=== PATIENT | female | born 1990 | race Caucasian/White ===

== ENCOUNTER 2016-12-06 23:24 | Emergency (ER) | payer OTHER ==
[~2016-12-06] VITALS: Ht 162.6 cm; Wt 119.9 kg
[~2016-12-06 23:24] MED LIST: IMT100 PO; MEDR150I IM
[2016-12-06 23:30] VITALS: TEMP 36.8; Ht 162.6 cm; Wt 119.9 kg
[2016-12-07] MEDS ORDERED: PHT15 PO
[2016-12-07] MEDS ORDERED: MEDR1INJ5 INJ
[2016-12-07] MEDS ORDERED: CYCL10TA7 PO
[2016-12-07] MEDS ORDERED: LORA-741 PO (00:01)
[2016-12-07] MEDS ORDERED: CHOL1000 PO (00:01)
[2016-12-07] MEDS ORDERED: FLUT0.15 NAE (00:01)
[2016-12-07] MEDS ORDERED: CEPHALEXIN 500MG HOME PACK 1 EA BTL PO STA (00:07)
[2016-12-07] MEDS ORDERED: SEPTRA DS HOME PACK 1 EA VIAL PO STA (00:07)
[2016-12-07] MEDS ORDERED: SULFAMETHOXAZOLE/TRIMETHOPRIM DS 800/160MG TAB PO STA (00:07)
[2016-12-07] MEDS ORDERED: CEPHALEXIN MONOHYDRATE 250 MG CAP PO STA (00:07)
--- NOTE | 2016-12-07 00:11 | EMERGENCY ROOM VISIT NOTE ---
History First contact with patient: 23:30 Chief Complaint: OTHER COMPLAINT Stated Complaint: OTHER- REQUESTING TO SEE PARTH History of Present Illness The patient is a 26 year old female who presents to the Emergency Room via private vehicle with complaints of "abscess on abdomen". The patient states that she has had abscesses before on her skin, and this past Wednesday she noticed a red ring in a dark central region that appear to be blood filled in the left anterior inferior abdomen. This was in the region of the waistline. She notes that Wednesday evening she did drain this region. She notes no pain. She does believe that the skin is tender to touch. She states that these usually will go away on their own however this one has lingered. She denies any fevers, chills, nausea, vomiting, recent tick bites or bites to the area or any other concerns. Review of Systems A complete 10-point Review of Systems was discussed with the patient, with pertinent positives and negatives listed in the History of Present Illness. All remaining Review of Systems questions can be considered negative unless otherwise specified. Past Medical/Surgical History Skin problems, wisdom teeth extraction Family History Diabetes mellitus Gallbladder disease Heart disease Hypertension Kidney disease Social History Smoking Status: Current Every Day Smoker Alcohol Use: occasionally Marital Status: single Housing Status: lives with family Occupation Status: employed Current/Historical Medications Scheduled Cephalexin Monohydrate (Keflex), 500 MG PO QID Cholecalciferol (Vitamin D3), 1 TAB PO DAILY Fluticasone Propionate (Nasal) (Flonase Allergy Relief), 2 SPRAYS GLORIA DAILY Medroxyprogesterone Acetate (C (Medroxyprogesterone Aceta), 150 MG INJ every 10 week Phentermine HCl (Phentermine HCl), 15 MG PO DAILY Sulfa/Trimethoprim (Bactrim Ds 800MG/160MG), 1 TAB PO BID Scheduled PRN Cyclobenzaprine HCl (Cyclobenzaprine HCl), 10 MG PO HS PRN for muscle spasm or migraine Lorazepam (Ativan), 0.5 MG PO TID PRN for Anxiety Sumatriptan Succinate (Imitrex), 100 MG PO UD PRN for Migraine Allergies Coded Allergies: No Known Allergies (Unverified , 12/06/16) Physical Exam Vital Signs Date Time Temp Pulse Resp B/P Pulse Ox O2 Delivery O2 Flow Rate FiO2 12/07/16 02:06 75 16 125/73 98 Room Air 12/07/16 01:18 80 18 117/72 99 Room Air 12/06/16 23:30 36.8 93 18 147/95 100 Room Air Physical Exam VITAL SIGNS - Vital signs and nursing notes were reviewed. Patient is afebrile , hypertensive at 147/95, non-tachycardic and is saturating well on room air 100 %. GENERAL -26-year-old female appearing her stated age who is in no acute distress. Communicates well with provider and answers questions appropriately. SKIN - overlying the left anterior inferior abdomen in the area of the waistline there is a 2 cm x 1.5 cm darkened region that is tender to palpation and indurated. Surrounding this there is an area of erythema consistent with cellulitis measuring approximately 12 cm x 8 cm. This region does not extend below the waistline. From the darkened center region there is a scant amount of serous blood fluid. Medical Decision & Procedures ER Provider Diagnostic Interpretation: Ultrasound as read by stat read: Ultrasound soft tissue: Superficial hypoechoic lesion with increased vascularity measuring 1.9x0.4x2.0cm. Consider infectious process such as abscess in the right clinical setting. Hematoma also had a similar appearance alternatively. Medications Administered Medications (Trade) Dose Ordered Sig/Freedom Route Start Time Stop Time Status Last Admin Dose Admin Trimethoprim/ Sulfamethoxazole (Sulfameth/ Trimeth Ds 800/ 160MG Home Pack) 1 homepack UD STAT PO 12/07/16 00:07 12/07/16 00:10 DC 12/07/16 00:19 1 HOMEPACK Trimethoprim/ Sulfamethoxazole (Septra Ds 800/ 160MG Tab) 1 tab NOW STAT PO 12/07/16 00:07 12/07/16 00:10 DC 12/07/16 00:19 1 TAB Cephalexin Monohydrate (Keflex 500MG Home Pack) 1 homepack NOW STAT PO 12/07/16 00:07 12/07/16 00:10 DC 12/07/16 00:20 1 HOMEPACK Cephalexin Monohydrate (Keflex Cap) 500 mg NOW STAT PO 12/07/16 00:07 12/07/16 00:10 DC 12/07/16 00:19 500 MG Medical Decision Patient was seen and evaluated as above. She appears to have a indurated region centrally located with surrounding area of erythema which is likely cellulitis. The area already appears to be draining slightly, and is nonfluctuant to palpation. I did elect to obtain an ultrasound of this region as she notes that it was draining earlier. I was obtained. This does reveal a collection such as an abscess, however clinically to appreciate the region I do not feel that any drainage at this time will be of benefit. I do not believe that there is infectious material within this region at this time. I believe it is likely blood filled, as the patient notes that when she drained earlier it drained a large amount of blood and not pus. I did provide her with Keflex and Bactrim, as well as home packs with remainder sent to the pharmacy. I suspect she is experiencing cellulitis, and I believe the central region will resolve. I did offer her incision and drainage at this time, but through decision making and shared decision making it was decided to defer at this time. She is to follow-up with her family doctor in 48 hours for recheck or return here for recheck or sooner if worsening. She was educated upon worrisome symptoms which to return, had questions prior to discharge and was discharged home in good condition. Evaluation treatment this patient following differential diagnoses were entertained: Cellulitis, abscess, hematoma, among others. Impression Primary Impression: Abscess Additional Impression: Cellulitis Departure Information Dispostion Home / Self-Care Condition GOOD Prescriptions Sulfa/Trimethoprim (Bactrim Ds 800MG/160MG) Tab 1 TAB PO BID for 9 Days, #18 TAB Prov: Parth Tomlin PA-C 12/07/16 Cephalexin Monohydrate (Keflex) 500 Mg Cap 500 MG PO QID for 9 Days, #36 CAP Prov: Parth Tomlin PA-C 12/07/16 Referrals Lyndon Ellsworth III, M.D. (PCP) Patient Instructions My [facility] Additional Instructions You were seen in the emergency department for an infection on your left anterior abdomen. As we discussed, the ultrasound does show a small fluid collection, but at this time I believe that this is likely blood filled, and is already draining. For the surrounding area of cellulitis, it is recommended to take Keflex and Bactrim. Keflex is 500 mg every 6 hours which is 4 times daily. This is for a total of 10 days. You been provided the first dose here, sent home with a home pack with the remainder sent to the pharmacy. Bactrim is taken every 12 hours, which is 2 times daily for a total of 10 days. You provided the first dose here, sent home with a home pack with the remainder sent to the pharmacy. You may clean the area with soap and water. I have outlined the area of redness, if it extends much beyond this please return. Please call your family doctor to schedule an appointment for recheck in the next 48 hours. If you are not able to do so, please return to the emergency department in 48 hours for recheck. Please return to the emergency department for any worsening of your symptoms or if you develop any fevers, chills or any new/concerning symptoms. Thank you for your time. Problem Qualifiers
[2016-12-07 02:06] VITALS: BP 125/73; PULSE 75; O2SAT 98
[2016-12-07] MEDS ORDERED: CEPH500C PO (02:07)
[2016-12-07] MEDS ORDERED: SULF800T23 PO (02:07)
--- NOTE | 2016-12-07 06:43 | DIAGNOSTIC IMAGING REPORT ---
LEFT EXTREMITY NONVASCULAR LIMITED CLINICAL HISTORY: Left anterior abdomen cellulitis with ?abscess/fluid collection COMPARISON STUDY: No previous studies for comparison. FINDINGS: Targeted sonography of the left anterior abdominal wall demonstrated a 1.9 x 0.4 x 2 cm subcutaneous hypoechoic focus with increased vascularity of the adjacent soft tissues. IMPRESSION: 1.9 x 0.4 x 2 cm subcutaneous hypoechoic focus of the left anterior abdominal wall. This could reflect a phlegmon or developing abscess. A hematoma could appear similar. Electronically signed by: Adolph Hernandez M.D. 12/07/2016 6:41 AM Dictated Date/Time: 12/07/2016 6:39 AM
== END 2016-12-07 02:13 | disposition home or self-care (01) ==
LOC: C.EDB 23:25 → C.EDA 12-07 02:13
DX: L02.211 Cutaneous abscess of abdominal wall (principal); F17.200 Nicotine dependence, unspecified, uncomplicated; Z79.899 Other long term (current) drug therapy; Z83.3 Family history of diabetes mellitus; Z83.79 Family history of other diseases of the digestive system; Z82.49 Family history of ischemic heart disease and other diseases of the circulatory system; Z84.1 Family history of disorders of kidney and ureter

== ENCOUNTER → 2016-12-21 | Outpatient (CLI) | payer OTHER ==
[~2016-12-21] MED LIST changes: +CHOL1000 PO; +CYCL10TA7 PO; +FLUT0.15 NAE; +LORA-741 PO; -MEDR150I IM; +MEDR1INJ5 INJ; +PHT15 PO
== END | disposition home or self-care (01) ==
LOC: C.MAMM 13:38
PROVIDERS: ATTEND Nurse Practitioner Family
DX: K90.0 Celiac disease (principal); E55.9 Vitamin D deficiency, unspecified

== ENCOUNTER 2017-09-30 14:34 | Emergency (ER) | payer OTHER ==
[~2017-09-30] VITALS: Ht 162.6 cm; Wt 123.0 kg
[2017-09-30 14:37] VITALS: TEMP 36.8; Ht 162.6 cm; Wt 123.0 kg
[2017-09-30] MEDS ORDERED: SODIUM CHLORIDE 0.9% 1000ML 1,000 ML IV STA ×2 (16:35)
[2017-09-30] MEDS ORDERED: ONDA4TAB9 PO (17:23)
[2017-09-30] MEDS ORDERED: ONDANSETRON INJ 2 MG/ML 2 ML VIAL IV STA (17:25)
[2017-09-30 17:56] LABS: BASO % 0.1 %; BASO ABS # 0.01 K/uL (0-0.2); EOS ABS # 0.07 K/uL (0-0.5); HEMATOCRIT 42.9 % (37-47); HEMOGLOBIN 14.9 g/dL (12.0-16.0); IG# 0.02 K/uL (0.00-0.02); LYMPH % 6.8 %; LYMPH ABS # 0.48 K/uL (1.2-3.4); MEAN CELL VOLUME 86.5 fL (80-100); MEAN CORPUSCULAR HGB CONC 34.7 g/dl (32-36); MEAN PLATELET VOLUME 10.3 fL (7.4-10.4); MONO % 3.5 %; MONO ABS # 0.25 K/uL (0.11-0.59); NEUT % 88.3 %; NEUT ABS # 6.22 K/uL (1.4-6.5); PLATELET COUNT 185 K/uL (130-400); RED CELL DISTRIBUTION WIDTH CV 13.5 % (11.5-14.5); RED CELL DISTRIBUTION WIDTH SD 42.5 fL (36.4-46.3); WHITE BLOOD COUNT 7.05 K/uL (4.8-10.8)
[2017-09-30 18:17] LABS: ALBUMIN 3.9 gm/dl (3.4-5.0); CALCIUM 8.9 mg/dl (8.5-10.1); CREATININE 0.7 mg/dl (0.60-1.20); POTASSIUM 3.7 mmol/L (3.5-5.1)
[2017-09-30 18:19] LABS: TOTAL PROTEIN 7.9 gm/dl (6.4-8.2)
[2017-09-30] MEDS ORDERED: KETOROLAC TROMETHAMINE 30 MG/ML VIAL IV STA (18:42)
--- NOTE | 2017-09-30 18:43 | DIAGNOSTIC IMAGING REPORT ---
GALLBLADDER-ABD LIMITED CLINICAL HISTORY: RUQ pain pain. Dyspnea. TECHNIQUE: Ultrasound COMPARISON STUDY: 09/17/2012 FINDINGS: Normal gallbladder. Gallbladder wall 2 mm. Common bile duct 3.5 mm. Mild fatty infiltration of liver. Subtle in homogeneity of the pancreas. Right kidney is negative for hydronephrosis. IMPRESSION: 1. Slight nonspecific in homogeneity of the pancreas. Correlation should be made with pancreatic enzymes status. 2. Normal gallbladder. 3. Mild fatty replacement of liver. The above report was generated using voice recognition software. It may contain grammatical, syntax or spelling errors. Electronically signed by: Prosper Lockwood M.D. 09/30/2017 6:41 PM Dictated Date/Time: 09/30/2017 6:40 PM
[2017-09-30] MEDS ORDERED: ALUMINUM/MAGNESIUM SUSP 30 ML UDC PO STA (18:59)
[2017-09-30] MEDS ORDERED: RANITIDINE HCL 150 MG TAB PO ONE (19:00)
[2017-09-30] MEDS ORDERED: OPTIRAY 320 IV PRN (19:00)
--- NOTE | 2017-09-30 19:46 | DIAGNOSTIC IMAGING REPORT ---
ABDOMEN AND PELVIS CT WITH IV CONTRAST CT DOSE: 1550.75 mGy.cm HISTORY: upper abd pain, abn pancreas on US TECHNIQUE: Multiaxial CT images of the abdomen and pelvis were performed following the use of intravenous contrast. A dose lowering technique was utilized adhering to the principles of ALARA. COMPARISON STUDY: Abdominal ultrasound 09/30/2017. FINDINGS: A 3 mm subpleural nodule within the left lower lobe on image 12. This is likely benign given the patient's age. Otherwise, the lung bases are clear. No pneumoperitoneum. No pneumatosis. The liver, gallbladder, pancreas, and adrenal glands are unremarkable. The spleen is mildly enlarged measuring 14 cm in length. Left-sided L5 spondylolysis. A 5 mm hypodense lesion within the right kidney. This is too small to characterize. Normal left kidney. No hydronephrosis. No retroperitoneal lymphadenopathy. Normal bladder, uterus, and ovaries. No bowel wall thickening or obstruction. Normal appendix. IMPRESSION: 1. No bowel wall thickening or obstruction. 2. Normal appendix. 3. Normal pancreas. 4. Mild splenomegaly. Electronically signed by: Octavio Whatley M.D. 09/30/2017 7:44 PM Dictated Date/Time: 09/30/2017 7:35 PM
[2017-09-30] MEDS ORDERED: PANTOprazole SOD 40 MG TAB PO STA (19:55)
[2017-09-30] MEDS ORDERED: OMEP40CA41 PO (19:56)
[2017-09-30 20:18] VITALS: BP 120/67; PULSE 96; O2SAT 97
--- NOTE | 2017-09-30 21:13 | EMERGENCY ROOM VISIT NOTE ---
History Report prepared by Teo: Volodymyr Vizcaino Under the Supervision of: Dr. Lyndon Hernandez M.D. First contact with patient: 16:30 Chief Complaint: ABDOMINAL PAIN Stated Complaint: ABD PAIN Nursing Triage Summary: pt reports "I think I have a stomach ulcer" pt reports severe abd pain radiating into epigastric region, vomiting bile diarrhea this am History of Present Illness The patient is a 27 year old female who presents to the Emergency Room with complaints of constant abdominal pain that started this morning. She rates her pain as a 5/10 in severity. The patient states that her abdominal pain is radiating into her chest. The patient states that she went to her physician this morning due to an arm infection from a tattoo she had done a week ago. She states that she was sent home with Doxycycline, which she did not take yet. She states that she was also given Zofran for her anxiety, which she took at 1245 before eating lunch. The patient states that she ate soup for lunch and began to experience abdominal pain. She reports that the pain originally started out as a 8/10 in severity. The patient states she has been vomiting bile. She states that she becomes nauseous whenever she belches, but admits her abdominal pain is relieved with belching. She reports her abdominal pain is currently not as severe as earlier today. The patient denies LOC, headache, fevers, chills, diaphoresis, visual changes, neck pain, chest pain, breathing difficulties, back pain, melena, hematochezia, urinary symptoms, numbness, weakness, lymphadenopathy, rash, or other complaints. She reports her grandmother had a cholecystectomy. Source of History: patient Onset: this morning Position: abdomen Symptom Intensity: 5/10 Timing: constant Modifying Factors (Relieving): other (belching) Associated Symptoms: + chest pain, + nausea, + vomiting Review of Systems See HPI for pertinent positives and negatives. A total of ten systems were reviewed and were otherwise negative. Family History Diabetes mellitus Gallbladder disease Heart disease Hypertension Kidney disease Social History Smoking Status: Current Every Day Smoker Alcohol Use: occasionally Marital Status: single Housing Status: lives with family Occupation Status: employed Current/Historical Medications Scheduled Cholecalciferol (Vitamin D3), 1 TAB PO QAM Medroxyprogesterone Acetate (C (Medroxyprogesterone Aceta), 150 MG INJ every 10 week Omeprazole (Prilosec), 40 MG PO DAILY Ondansetron (Ondansetron HCl), 4 MG PO UD Phentermine HCl (Phentermine HCl), 15 MG PO DAILY Scheduled PRN Cyclobenzaprine HCl (Cyclobenzaprine HCl), 10 MG PO HS PRN for muscle spasm or migraine Fluticasone Propionate (Nasal) (Flonase Allergy Relief), 2 SPRAYS GLORIA DAILY PRN for Allergic Reaction Lorazepam (Ativan), 0.5 MG PO TID PRN for Anxiety Sumatriptan Succinate (Imitrex), 100 MG PO UD PRN for Migraine Allergies Coded Allergies: Bupropion (Unverified Allergy, Severe, DIZZINESS/PALPATASIONS/SWEATING, ) Physical Exam Vital Signs Date Time Temp Pulse Resp B/P (MAP) Pulse Ox O2 Delivery O2 Flow Rate FiO2 09/30/17 20:18 96 18 120/67 97 09/30/17 18:40 107 18 115/90 97 Room Air 09/30/17 14:37 36.8 120 20 125/84 95 Room Air Physical Exam GENERAL: Awake, alert, well-appearing, in no distress HENT: Normocephalic, atraumatic. Oropharynx unremarkable. EYES: Normal conjunctiva. Sclera non-icteric. NECK: Supple. No nuchal rigidity. FROM. No masses. RESPIRATORY: Clear to auscultation. No wheezes. CARDIAC: Normal rate. Normal rhythm. No murmurs. No rubs. Extremities warm and well perfused. Pulses equal. No JVD. GI: Soft, non-distended. Right upper quadrant tenderness to palpation. No rebound or guarding. No masses. RECTAL: Deferred. MUSCULOSKELETAL: Atraumatic. Chest examination reveals no tenderness. The back is symmetrical on inspection without obvious abnormality. There is no CVA tenderness to palpation. No joint edema. LOWER EXTREMITIES: Calves are equal size bilaterally and non-tender. No edema. No discoloration. NEURO: Normal sensorium. No sensory or motor deficits noted. SKIN: No rash or jaundice noted. Medical Decision & Procedures ER Provider Diagnostic Interpretation: Radiology results as stated below per my review and radiologist interpretation: GALLBLADDER-ABD LIMITED CLINICAL HISTORY: RUQ pain pain. Dyspnea. TECHNIQUE: Ultrasound COMPARISON STUDY: 09/17/2012 FINDINGS: Normal gallbladder. Gallbladder wall 2 mm. Common bile duct 3.5 mm. Mild fatty infiltration of liver. Subtle in homogeneity of the pancreas. Right kidney is negative for hydronephrosis. IMPRESSION: 1. Slight nonspecific in homogeneity of the pancreas. Correlation should be made with pancreatic enzymes status. 2. Normal gallbladder. 3. Mild fatty replacement of liver. The above report was generated using voice recognition software. It may contain grammatical, syntax or spelling errors. Electronically signed by: Prosper Lockwood M.D. 09/30/2017 6:41 PM Dictated Date/Time: 09/30/2017 6:40 PM ABDOMEN AND PELVIS CT WITH IV CONTRAST CT DOSE: 1550.75 mGy.cm HISTORY: upper abd pain, abn pancreas on US TECHNIQUE: Multiaxial CT images of the abdomen and pelvis were performed following the use of intravenous contrast. A dose lowering technique was utilized adhering to the principles of ALARA. COMPARISON STUDY: Abdominal ultrasound 09/30/2017. FINDINGS: A 3 mm subpleural nodule within the left lower lobe on image 12. This is likely benign given the patient's age. Otherwise, the lung bases are clear. No pneumoperitoneum. No pneumatosis. The liver, gallbladder, pancreas, and adrenal glands are unremarkable. The spleen is mildly enlarged measuring 14 cm in length. Left-sided L5 spondylolysis. A 5 mm hypodense lesion within the right kidney. This is too small to characterize. Normal left kidney. No hydronephrosis. No retroperitoneal lymphadenopathy. Normal bladder, uterus, and ovaries. No bowel wall thickening or obstruction. Normal appendix. IMPRESSION: 1. No bowel wall thickening or obstruction. 2. Normal appendix. 3. Normal pancreas. 4. Mild splenomegaly. Electronically signed by: Octavio Whatley M.D. 09/30/2017 7:44 PM Dictated Date/Time: 09/30/2017 7:35 PM Laboratory Results 09/30/17 17:47 Red Blood Count 4.96, Mean Corpuscular Volume 86.5, Mean Corpuscular Hemoglobin 30.0, Mean Corpuscular Hemoglobin Concent 34.7, Mean Platelet Volume 10.3, Neutrophils (%) (Auto) 88.3, Lymphocytes (%) (Auto) 6.8, Monocytes (%) (Auto) 3.5, Eosinophils (%) (Auto) 1.0, Basophils (%) (Auto) 0.1, Neutrophils # (Auto) 6.22, Lymphocytes # (Auto) 0.48, Monocytes # (Auto) 0.25, Eosinophils # (Auto) 0.07, Basophils # (Auto) 0.01 09/30/17 17:47 Test 09/30/17 17:10 09/30/17 17:47 Urine Color DK YELLOW Urine Appearance CLEAR (CLEAR) Urine pH 5.5 (4.5-7.5) Urine Specific Russell 1.027 (1.000-1.030) Urine Protein NEG (NEG) Urine Glucose (UA) NEG (NEG) Urine Ketones 1+ (NEG) Urine Occult Blood NEG (NEG) Urine Nitrite NEG (NEG) Urine Bilirubin NEG (NEG) Urine Urobilinogen NEG (NEG) Urine Leukocyte Esterase NEG (NEG) White Blood Count 7.05 K/uL (4.8-10.8) Red Blood Count 4.96 M/uL (4.2-5.4) Hemoglobin 14.9 g/dL (12.0-16.0) Hematocrit 42.9 % (37-47) Mean Corpuscular Volume 86.5 fL (80-100) Mean Corpuscular Hemoglobin 30.0 pg (25-34) Mean Corpuscular Hemoglobin Concent 34.7 g/dl (32-36) Platelet Count 185 K/uL (130-400) Mean Platelet Volume 10.3 fL (7.4-10.4) Neutrophils (%) (Auto) 88.3 % Lymphocytes (%) (Auto) 6.8 % Monocytes (%) (Auto) 3.5 % Eosinophils (%) (Auto) 1.0 % Basophils (%) (Auto) 0.1 % Neutrophils # (Auto) 6.22 K/uL (1.4-6.5) Lymphocytes # (Auto) 0.48 K/uL (1.2-3.4) Monocytes # (Auto) 0.25 K/uL (0.11-0.59) Eosinophils # (Auto) 0.07 K/uL (0-0.5) Basophils # (Auto) 0.01 K/uL (0-0.2) RDW Standard Deviation 42.5 fL (36.4-46.3) RDW Coefficient of Variation 13.5 % (11.5-14.5) Immature Granulocyte % (Auto) 0.3 % Immature Granulocyte # (Auto) 0.02 K/uL (0.00-0.02) Anion Gap 7.0 mmol/L (3-11) Est Creatinine Clear Calc Drug Dose 153.6 ml/min Estimated GFR () 135.7 Estimated GFR (Non- 117.1 BUN/Creatinine Ratio 21.6 (10-20) Calcium Level 8.9 mg/dl (8.5-10.1) Total Bilirubin 0.8 mg/dl (0.2-1) Direct Bilirubin 0.2 mg/dl (0-0.2) Aspartate Amino Transf (AST/SGOT) 19 U/L (15-37) Alanine Aminotransferase (ALT/SGPT) 46 U/L (12-78) Alkaline Phosphatase 54 U/L (45-117) Total Protein 7.9 gm/dl (6.4-8.2) Albumin 3.9 gm/dl (3.4-5.0) Lipase 117 U/L (73-393) Human Chorionic Gonadotropin, Qual NEG (NEG) Laboratory results reviewed by me Medications Administered Medications (Trade) Dose Ordered Sig/Freedom Route Start Time Stop Time Status Last Admin Dose Admin Sodium Chloride 1,000 ml @ 125 mls/hr Q8H STAT IV 09/30/17 16:35 09/30/17 20:48 DC 09/30/17 17:32 125 MLS/HR Sodium Chloride 1,000 ml @ 999 mls/hr Q1H1M STAT IV 09/30/17 16:35 09/30/17 17:35 DC 09/30/17 17:32 999 MLS/HR Ondansetron HCl (Zofran Inj) 4 mg NOW STAT IV 09/30/17 17:25 09/30/17 17:26 DC 09/30/17 17:32 4 MG Ketorolac Tromethamine (Toradol Inj) 10 mg NOW STAT IV 09/30/17 18:42 09/30/17 18:44 DC 09/30/17 19:02 10 MG Al Hydroxide/Mg Hydroxide (Maalox Susp) 30 ml NOW STAT PO 09/30/17 18:59 09/30/17 19:00 DC 09/30/17 19:55 30 ML Ranitidine HCl (zANTac TAB) 150 mg NOW ONCE PO 09/30/17 19:00 09/30/17 19:01 DC 09/30/17 19:55 150 MG Pantoprazole Sodium (Protonix Tab) 40 mg NOW STAT PO 09/30/17 19:55 09/30/17 19:56 DC 09/30/17 20:11 40 MG ED Course 1635: Ordered Sodium Chloride 1000 ml @ 999 mls/hr IV, Sodium Chloride 1000 ml @ 125 mls/hr IV. 1720: The patient was evaluated in room A09B. A complete history and physical exam was performed. 1725: Ordered Zofran Injection 4 mg IV. 1841: Ordered Toradol Injection 10 mg IV. 1858: Ordered Maalox Susp 30 ml PO. 1899: Ordered Zantac Tab 150 mg PO. 1901: I reevaluated the patient and updated her. She is going over to CT. 1947: I reevaluated the patient and she is doing well. Discussed results and discharge instructions: She verbalized understanding and agreement. The patient is ready for discharge. 1954: Ordered Protonix Tab 40 mg PO. Medical Decision Triage Nursing notes reviewed and agree them. The patient's history was concerning for abdominal pain. Differential diagnosis: Etiologies such as PUD, biliary pathology, pancreatitis, obstruction, appendicitis, diverticulitis, UTI, mesenteric ischemia, aortic pathology, infections, inflammatory bowel disease, renal colic, as well as others were entertained. Physical examination findings: As above. ER treatment provided: Normal saline hydration IV Zofran On reassessment the patient felt better. IV Toradol 10 mg All Maalox Oral Zantac On reassessment the patient was doing well. Oral Protonix Diagnostics interpreted by me: The labs revealed an unremarkable CBC and chemistry panel. LFTs and lipase negative. Urinalysis and test negative. Imaging studies: Gallbladder ultrasound and CT imaging as above. The patient had upper abdominal pain. She notes reflux-like symptoms. Her ultrasound imaging and CT were unremarkable. Ultrasound imaging did question an abnormality of the pancreas but CT imaging did not confirm. Lipase was normal. The patient was feeling better with the above treatment. She has a history of celiac disease and notes dietary indiscretion. She agrees to follow her diet. I will put her on a PPI. She will follow-up with [facility] gastroenterology clinic. I did discuss the possibility of biliary dysfunction. An outpatient endoscopy would not also be out of the question. She will discuss this with her GI specialist. If she worsens in any way she will be back.I gave my usual and customary discussion regarding this issue. She was given a prescription for doxycycline regarding a mild folliculitis, skin irritation from a recent tattoo. There is no significant cellulitis present. She also has a prescription for Zofran. By the evaluation outlined above other emergent etiologies such as those listed in the differential, as well as others, were deemed relatively unlikely. The patient was educated about the findings as listed above. All questions were answered and the patient was pleased with the treatment. Return instructions were outlined and the patient was discharged in stable condition. The patient was referred to GI for follow-up for a recheck of the current condition. Medication Reconcilliation Current Medication List: was personally reviewed by me Blood Pressure Screening Patient's blood pressure: Normal blood pressure Impression Primary Impression: Upper abdominal pain Additional Impression: Vomiting Scribe Attestation The scribe's documentation has been prepared under my direction and personally reviewed by me in its entirety. I confirm that the note above accurately reflects all work, treatment, procedures, and medical decision making performed by me. Departure Information Dispostion Home / Self-Care Prescriptions Omeprazole (PRILOSEC) 40 Mg Cap 40 MG PO DAILY, #30 CAP Prov: Lyndon Hernandez MD 09/30/17 Referrals Lyndon Ellsworth III, M.D. (PCP) Forms HOME CARE DOCUMENTATION FORM, IMPORTANT VISIT INFORMATION Patient Instructions My [facility] Additional Instructions Continue the Zofran prescription as below: Zofran(odansetron) tablets 4mg: Take one and allow it to dissolve in your mouth every four to six hours as needed for nausea or vomiting. Prilosec 40 mg: Take one pill twice a day. Take this before eating breakfast and dinner. After 1 week take one pill a day until directed otherwise by your child care team lead. Avoid ibuprofen. Avoid alcohol. Follow your celiac diet. Acetaminophen(Tylenol) may be used for fever or pain. Use 1000mg every six hours as needed. Avoid using more than 4000mg in a 24 hour period. Rest and drink plenty of fluids as tolerated. Slow sips of water or sports drinks are recommended instead of large amounts all at once. Continue current medications. Once your stomach is settled start with a clear liquid diet (jello, soup broth, etc.) and then advance as tolerated. You should avoid full, heavy meals for about 24 hrs from the time your symptoms resolved. Return to the ER for persistent vomiting, fevers, abdominal pain, chest pains, difficulty breathing, black or bloody stools, worsening of your condition, or as needed. Follow up with GI clinic tomorrow to schedule an appointment for a recheck of your current condition. Problem Qualifiers
== END 2017-09-30 20:20 | disposition home or self-care (01) ==
LOC: C.EDB 14:35 → C.EDA 20:20
DX: R10.10 Upper abdominal pain, unspecified (principal); R11.10 Vomiting, unspecified; F41.9 Anxiety disorder, unspecified; F17.200 Nicotine dependence, unspecified, uncomplicated; Z83.3 Family history of diabetes mellitus; Z82.49 Family history of ischemic heart disease and other diseases of the circulatory system; Z84.1 Family history of disorders of kidney and ureter